=== PATIENT | male | born 2000 | race American Indian/Alaskan Native ===

== ENCOUNTER 2020-01-11 13:10 | Emergency (ER) | payer SELFPAY ==
[2020-01-11 13:31] VITALS: BP 143/78
--- NOTE | 2020-01-11 13:32 | Emergency Department Report ---
Chief Complaint: Urogenital-Male Stated Complaint: PRIVATE AREA DISCOMFORT/PAIN Time Seen by Provider: 01/11/20 13:20 - HPI History of Present Illness: This is a 19-year-old male nontoxic, well in appearance with no signs of distress presents to the ED for painless bumps to penile shaft. Patient stated he is asymptotic. Denies any penile discharge, testicular pain, or swelling. Patient denies any urinary symptoms. Patient denies any fever, chills, headache, nausea, vomiting, chest pain or shortness of breathe. denies any other symptoms or complaints. Denies any allergies or PMH. - Exam Physical Exam: Latih Fuchs RN present during exam. painless bumps consistant with genital warts. No ulcers or lesions. No penile discharge. No urinary symptoms. Normal physical exam. MSE screening note: Focused history and physical exam performed. Due to findings the following was ordered: ED Medical Decision Making - Medical Decision Making 19-year-old male that presents with nonmedical emergency complaint. Patient presents with genital warts. no ulcers or lesions. no herpes symptoms or signs. I gave patient many different referrals to follow-up with PCP that he can see today in the [place] [address] building. Patient was instructed to Follow- up with a primary care doctor in 3-5 days or if symptoms worsen and continue return to emergency room as soon as possible. At time of discharge, the patient does not seem toxic or ill in appearance. No acute signs of distress noted. Patient agrees to discharge treatment plan of care. No further questions noted by the patient. ED Disposition for MSE Clinical Impression: Genital warts Disposition: Z-07 MED SCREENING EXAM-LEFT Is pt being admited?: No Does the pt Need Aspirin: No Instructions: Genital Warts (ED) Additional Instructions: Follow-up with a primary care doctor or if symptoms worsen and continue return to the emergency department as soon as possible. Referrals: PRIMARY MD ANTONIO [Primary Care Provider] - 3-5 Days KYLE DELGADO MD [Staff Physician] - 3-5 Days [facility] [Outside] - 3-5 Days
== END 2020-01-11 13:50 | disposition left against medical advice (07) ==
LOC: ED 13:10
DX: A63.0 Anogenital (venereal) warts (principal)
CPT/HCPCS: 99281

== ENCOUNTER 2022-06-30 19:57 | Emergency (ER) | payer SELFPAY ==
[2022-07-01] MEDS ORDERED: ACETAMINOPHEN 500 MG TAB PO ONE (01:23)
[2022-07-01] MEDS ORDERED: IBUPROFEN 600 MG TAB PO ONE (01:23)
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
[2022-07-01 03:24] VITALS: BP 122/68
== END 2022-07-01 03:24 | disposition home or self-care (01) ==
LOC: ED 19:57
DX: M54.12 Radiculopathy, cervical region (principal); R20.2 Paresthesia of skin; V89.2XXA Person injured in unspecified motor-vehicle accident, traffic, initial encounter; Y93.89 Activity, other specified; Y92.89 Other specified places as the place of occurrence of the external cause; Y99.8 Other external cause status
CPT/HCPCS: 99282